=== PATIENT | female | born 1955 ===

== ENCOUNTER 2023-08-22 10:38 | Outpatient (CLI) | payer MEDICARE, BC | END 2023-08-22 10:39 | disposition home or self-care (01) | LOC: CSHCP 10:38 | PROVIDERS: ATTEND Internal Medicine | DX: J20.9 Acute bronchitis, unspecified (principal); J44.9 Chronic obstructive pulmonary disease, unspecified | CPT/HCPCS: 94060; 94664; 94726; 94729; 94760 ==